=== PATIENT | female | born 1935 | race Caucasian/White ===

== ENCOUNTER 2019-05-06 08:17 | Observation (INO) ==
[2019-05-06 08:59] LABS: Appearance Urine Clear (Clear); Bilirubin Urine Negative (Negative); Blood Urine Negative (Negative); Color Urine Yellow; Glucose Urine UA Negative (Negative); Ketones Urine Negative (Negative); Leukocyte Esterase Urine Negative (Negative); Nitrite Urine Negative (Negative); Protein Urine Negative (Negative); Urobilinogen Urine Negative (Negative); pH Urine 8.5 (4.5-7.5)
--- NOTE | 2019-05-06 09:05 | CT Scan Report ---
CT head/brain wo con CLINICAL HISTORY: 83 years-old Female with encephlopathy, h/o CVA. Acute encephalopathy TECHNIQUE: Multiple axial CT images of the head were obtained without contrast. A dose lowering tech nique was utilized adhering to the principles of ALARA. CT DOSE: 651.12 mGy.cm COMPARISON: None. FINDINGS: No acute intracranial hemorrhage, midline shift, intracranial mass, hydrocephalus, territorial ischem ia or abnormal extra-axial collection. Age-related involutional changes. Multifocal patchy white marychuy er hypodensities are suggestive of advanced chronic microvascular ischemic disease. Encephalomalacia of the left frontal, temporal and parietal lobes, left carotid radiata, external capsule and lentifor m nucleus compatible with areas of remote infarction. Senescent calcifications noted about the right lentiform nucleus. Cerebral vascular calcifications are noted. The calvarium is intact. Note is made of a metopic suture. Moderate mucosal thickening of the right frontal sinus with mild mucosal thickening of the ethmoid air cells. The mastoid air cells and middle ear cavities are clear. Prior bilateral cataract repair. Soft tissues are unremarkable. IMPRESSION: 1. No acute intracranial abnormality identified. 2. Age-related involutional change with suggestion of advanced chronic microvascular ischemic disease . 3. Encephalomalacia of the left frontal, temporal and parietal lobes from remote infarct. The above report was generated using voice recognition software. It may contain grammatical, syntax o r spelling errors. Electronically signed by: Hiren Soto M.D. 05/06/2019 9:04 AM
--- NOTE | 2019-05-06 09:25 | XRay Report ---
XR chest 1V portable HISTORY: weakness COMPARISON: None. FINDINGS: No pneumothorax. No pleural effusions. The heart is mildly enlarged. Small electronic devic e overlying the left heart border. Mild diffuse interstitial thickening. This may be chronic or repre sent mild congestive change. Tortuous thoracic aorta. There is right hilar prominence. Bibasilar line ar densities are noted. IMPRESSION: 1. Cardiomegaly with diffuse interstitial thickening. This may be chronic or represent mild congestiv e change. 2. Bibasilar linear densities favor subsegmental atelectasis. 3. Right hilar prominence. This could be due to the rotated patient. Recommend follow-up PA and later al views the chest for further evaluation. Electronically signed by: Ric Solitario M.D. 05/06/2019 9:24 AM
--- NOTE | 2019-05-06 09:28 | Emergency Department Note ---
ED Visit Note I assisted Dr Becker in the care of the patient. Please see attending note for complete details. . Resident Activity Tracking Resident Involvement: Resident Care Provided Care Provided: Adult ED
[2019-05-06 10:06] LABS: Basophils # (auto) 0.04 K/uL (0-0.2); Basophils % (auto) 0.4 %; Eosinophils # (auto) 0.54 K/uL (0-0.5); Eosinophils % (auto) 6.1 %; Hematocrit (blood only) 32.5 % (37-47); Hemoglobin 10.6 g/dL (12.0-16.0); Immature Granulocytes # (auto) 0.02 K/uL (0.00-0.02); Immature Granulocytes % (auto) 0.2 %; Lymphocytes # (auto) 1.17 K/uL (1.2-3.4); Lymphocytes % (auto) 13.2 %; Mean Corpuscular Hgb Conc 32.6 g/dL (32-36); Mean Platelet Volume 9.4 fL (7.4-10.4); Monocytes # (auto) 1.01 K/uL (0.11-0.59); Monocytes % (auto) 11.4 %; Neutrophils # (auto) 6.11 K/uL (1.4-6.5); Neutrophils % (auto) 68.7 %; Platelet Count 272 K/uL (130-400); RDW Coefficient of Variation 15.3 % (11.5-14.5); Red Blood Count 3.87 M/uL (4.2-5.4); White Blood Count 8.89 K/uL (4.8-10.8)
[2019-05-06 10:21] LABS: Prothrombin Time 10.7 Seconds (9.0-12.0)
[2019-05-06 10:24] LABS: Alanine Aminotransferase 25 U/L (12-78); Albumin Level 3.3 gm/dl (3.4-5.0); Aspartate Aminotransferase 26 U/L (15-37); BUN Creatinine Ratio 18.8 (10-20); Blood Urea Nitrogen 14 mg/dl (7-18); Calcium 8.8 mg/dl (8.5-10.1); Carbon Dioxide 31 mmol/L (21-32); Chloride 104 mmol/L (98-107); Creatinine Clr Calc Pharmacy 57.2 ml/min; Est GFR (African American) 82.9; Est GFR (Non-African American) 71.5; Glucose 89 mg/dl (70-99); Magnesium 1.9 mg/dl (1.8-2.4); Potassium 3.6 mmol/L (3.5-5.1); Sodium 141 mmol/L (136-145)
[2019-05-06 10:34] LABS: Albumin Globulin Ratio 0.9 (0.9-2); Alkaline Phosphatase 85 U/L (45-117); Bilirubin,Total 0.5 mg/dl (0.2-1); Globulin 3.7 gm/dl (2.5-4.0); Troponin I < 0.015 ng/ml (0-0.045)
[2019-05-06 10:48] LABS: T4 Free Thyroxine 1.16 ng/dl (0.8-1.6)
[2019-05-06] MEDS ORDERED: ACETAMINOPHEN 325 MG TAB PO PRN (13:32)
[2019-05-06] MEDS ORDERED: ONDANSETRON INJ 2 MG/ML 2 ML VIAL IV PRN (13:32)
--- NOTE | 2019-05-06 14:02 | History & Physical Report ---
Date of Service May 06, 2019 Assessment & Plan (1) Altered mental status: (2) CVA (cerebral vascular accident): -[facility] - no electrolyte abnormalities, EKG without acute changes, CT of the head WNL -MRI of brain w/wp contrast -rule out seizure as well as additional CVA d/t stroke history -HIM consult for neurology and PCP records: [facility], Dr. Villatoro with neurology, and [facility] Dr. Wilson, PCP -Continue ASA and Plavix -Continue statin therapy -Neurology consult pending MRI, hold off until have records or unless pt status changes -Start on NSS x1 day -NPO until bedside nursing swallow eval, if poor then get formal speech eval, otherwise allow diet. -PT/OT consults (3) HLD (hyperlipidemia): -Continue atorvastatin 80 mg daily (4) HTN (hypertension): -Continue amlodipine 5 mg daily,, lisinopril 10 mg daily (5) Hypothyroidism: -Continue levothyroxine 25 mcg every morning (6) Urinary incontinence: -Continue oxybutynin 10 mg twice daily, -Last UTI was prior to last stroke -UA appears clean -incontinence could be from stroke as well as possible seizure? -Consider inserting Noble for skin protection if recurrent (7) DVT prophylaxis: -Teds, SCDs, Plavix and aspirin History of Present Illness Primary Care Provider: NO PCP This is a 83 yo F with PMHx of multiple embolic CVA, 4 events known of by family with the most recent being 6 wks ago, without significant residual deficits, HLD, hypothyroidism, HTN, arthritis, recurrent UTI, who is currently visiting her daughter here in [place]. Patient is from [facility] and flew out with her other daughter who is also present. The daughters last new the patient to be well around 3 AM when they heard her get up to take her morning levothyroxine at approximately 3 AM, which is her normal routine. The patient states that she was yelling for help after getting back into bed as she lost control of her bladder, but daughters did not hear her until ~7 AM. The patient was soaked in urine, no loss of bowel control, no vomiting. The patient felt generalized weakness everywhere, specifically heaviness in both of her legs, and was able unable to get up and out of bed therefore called EMS. The patient follows with [facility] in [place], [place] with neurologym, Dr. Smith, routinely. She has had 3 left-sided CVAs and her most recent CVA occurred on the right side ~ 6 weeks ago. She has had one intracranial bleed per family report which occurred prior to her last stroke. She is currently on anticoagulation with Plavix and aspirin. Patient missed her other morning medications today. She denies any complaints including headache, dizziness, lightheadedness, or loss of consciousness. She has not sustained any recent falls. Allergies Allergy/AdvReac Type Severity Reaction Status Date / Time No Known Allergies Allergy Unverified 05/06/19 11:30 Home Medications Home Medications Medication Instructions Recorded Confirmed Type acetaminophen 500 mg PO TID PRN 05/06/19 05/06/19 History amlodipine 5 mg PO DAILY 05/06/19 05/06/19 History aspirin [Aspirin Low Dose] 81 mg PO DAILY 05/06/19 05/06/19 History atorvastatin 80 mg PO DAILY 05/06/19 05/06/19 History cefuroxime axetil 500 mg PO BID 05/06/19 05/06/19 History cholecalciferol (vitamin D3) 2,000 unit PO DAILY 05/06/19 05/06/19 History clopidogrel 75 mg PO DAILY 05/06/19 05/06/19 History diclofenac sodium 4 g TOPICAL QID 05/06/19 05/06/19 History escitalopram oxalate 10 mg PO DAILY 05/06/19 05/06/19 History levothyroxine 25 mcg PO QAM 05/06/19 05/06/19 History lisinopril 10 mg PO DAILY 05/06/19 05/06/19 History multivitamin [Multiple Vitamins] 1 tab PO DAILY 05/06/19 05/06/19 History oxybutynin chloride 10 mg PO BID 05/06/19 05/06/19 History primidone 50 mg PO HS 05/06/19 05/06/19 History Past Med/Surg History Medical History No pertinent family history Social History Preferred Language: Occitan Communication Ability: Effective 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 Beliefs That Will Affect Care: Confucianism Confucianism Beliefs: Religion Current Living Situation: Alone and Personal Care Facility Other Information That Helps Us Care for You: No Feels Safe at Home: Yes Safety Concerns: Feels Safe At This Time Smoking Status: Never smoker Do You Dip or Chew Tobacco: No Second Hand Exposure: Yes (in the past) Tobacco Cessation Education Requested by Patient: No Hx Alcohol Use: Yes Hx Substance Use: No Review of Systems Review of Systems: Constitutional: No fever, chills, sweats, fatigue or weakness, no headache Eyes: No diplopia, no changes in vision ENT: No sore throat, tinnitus, or trouble swallowing Respiratory: No shortness of breath, No dyspnea at rest or on exertion, no cough or sputum Cardiovascular: No chest pain, palpitations, or flutter Abdomen: No pain, No constipation, No diarrhea, No nausea, No vomiting Musculoskeletal: + Generalized muscle pain in both legs, No joint pain, No swelling Genitourinary : + Urinary incontinence, No hematuria Neurologic: +difficulty with ambulation, no sensory or motor deficits Psychiatric: No depression or anxiety symptoms Endocrine: No fatigue, No weight changes Integumentary: No itch, No rash Physical Exam Physical Exam: General: awake, alert, no apparent distress Head: Normocephalic, atraumatic ENT: PERRL, EOMI, no pharyngeal exudate, mucous membranes slightly dry Chest: Clear to auscultation, + slightly diminished at bases, on room air, no adventitious breath sounds Cardiac: Regular rate and rhythm, no murmur, no JVD, normal peripheral pulses, good capillary refill Abdominal: NABS x 4 quadrants, soft, nontender to palpation, no rebound, guarding or tenderness Extremities: Normal inspection, no peripheral edema or erythema, calfs nontender to palpation Psych: Normal mood and affect Neuro: AAO x 3, strength intact bilaterally and related 5/5 in upper extremities, bilateral lower extremities 4/5, has difficulty moving to what appears to be a muscle cramp as her pain resolved within 10 seconds during testing, no other motor deficits, speech is clear but speaks very quietly, no peripheral sensory deficits Skin: no rash or erythema Results & Data Vital Signs (Past 12 Hours) Vital Signs Temp Pulse Pulse Resp BP BP Pulse Ox 05/06/19 13:36 72 18 166/93 H 96 05/06/19 12:00 74 16 154/93 H 97 05/06/19 10:07 71 16 157/96 H 97 05/06/19 08:53 98 05/06/19 08:30 36.5 C 70 16 178/77 H 98 Diagnostic Findings XR chest 1V portable HISTORY: weakness COMPARISON: None. FINDINGS: No pneumothorax. No pleural effusions. The heart is mildly enlarged. Small electronic device overlying the left heart border. Mild diffuse interstitial thickening. This may be chronic or represent mild congestive change. Tortuous thoracic aorta. There is right hilar prominence. Bibasilar linear densities are noted. IMPRESSION: 1. Cardiomegaly with diffuse interstitial thickening. This may be chronic or represent mild congestive change. 2. Bibasilar linear densities favor subsegmental atelectasis. 3. Right hilar prominence. This could be due to the rotated patient. Recommend follow-up PA and lateral views the chest for further evaluation. [place] [phone] CT Scan Report Patient: EDGARDO GUAJARDOAdmit Date: 05/06/19 MR#: [id number]: [id number] [facility] Acct ID:[id number]: Date: 1935[facility] Zip: [place] [address] Age: 83Location: ED Sex: F Room/Bed: Att Phy: Diagnosis: LETHARGIC Lupe Phy: PCP,NO Service Date: 05/06/19 [facility] Phy: Interpreting Phy: Juanpablo Soto Admit Phy: Ordering Phy: Khoa Vega MD cc: ~ CT head/brain wo con CLINICAL HISTORY: 83 years-old Female with encephlopathy, h/o CVA. Acute encephalopathy TECHNIQUE: Multiple axial CT images of the head were obtained without contrast. A dose lowering technique was utilized adhering to the principles of ALARA. CT DOSE: 651.12 mGy.cm COMPARISON: None. FINDINGS: No acute intracranial hemorrhage, midline shift, intracranial mass, hydrocephalus, territorial ischemia or abnormal extra-axial collection. Age- related involutional changes. Multifocal patchy white matter hypodensities are suggestive of advanced chronic microvascular ischemic disease. Encephalomalacia of the left frontal, temporal and parietal lobes, left carotid radiata, external capsule and lentiform nucleus compatible with areas of remote infarction. Senescent calcifications noted about the right lentiform nucleus. Cerebral vascular calcifications are noted. The calvarium is intact. Note is made of a metopic suture. Moderate mucosal thickening of the right frontal sinus with mild mucosal thickening of the ethmoid air cells. The mastoid air cells and middle ear cavities are clear. Prior bilateral cataract repair. Soft tissues are unremarkable. IMPRESSION: 1. No acute intracranial abnormality identified. 2. Age-related involutional change with suggestion of advanced chronic microvascular ischemic disease. 3. Encephalomalacia of the left frontal, temporal and parietal lobes from remote infarct. Code Status & VTE Plan Code Status DNR-discussed with the patient and her daughters at bedside Supervising Physician Co-Signing Physician Notes Patient seen and examined with Mine SALGADO. I agree with her HPI, history, ROS, physical exam and A/P. Case was discussed with her as well as the reyes points in treatment. I personally reviewed the lab work and imaging and other diagnostic studies. patient with acute onset of urinary incontinence this morning around 3am, this is new issue urine was "pouring" out of her, clear as water per daughters and RN here in the ED straight cath for over 600cc so this would suggest urinary retention with overflow incontinence also with bilateral leg weakness, pain in upper legs which is new symptom per her daughter, she has h/o strokes in the past, some mild residual deficits from stroke two years ago, no deficits from more recent stroke a few months ago awaiting records from [facility] reviewed labs, arabella CBC and BMP, no evidence of UTI on urinalysis which was straight cath no fever, vitals stable except for some mildly elevated BP - Acute onset urinary incontinence, appears to be overflow so actually some retention associated with bilateral leg weakness check MRI lumbar spine and MRI brain admit to tele no signs of UTI although she has a history of such no low back pain but has very profound weakness will get PT/OT once we know the lumbar spine is okay PG Care Time/CCT Total # of Minutes Spent Total Time Spent with Patient: Total time spent is greater than 50% in coordination of care (as documented) at patient's floor/unit and/or counseling patient: (1) Altered mental status Altered mental status type: unspecified Qualified Code(s): R41.82 - Altered mental status, unspecified
[2019-05-06] MEDS: SODIUM CHLORIDE 0.9% 1000ML 1,000 ML IV SCH (15:11)
--- NOTE | 2019-05-06 15:43 | Emergency Department Note ---
Entered by Jarvis Gilmore acting as a scribe for Melchor Murray MD ED Provider Note CHIEF COMPLAINT: Generalized illness HISTORY OF PRESENT ILLNESS: The patient is a 83 year old female who presents to the Emergency Room with complaints of generalized illness. Per the patient's daughter, the patient has been visiting from [place]. This morning, the patient woke up screaming in pain and had some incontinence which she normally has issues with. The patient was unable to describe what kind of pain she is in because she has some speech impediments. The patient goes to speech therapy for the impediments. The patient has a history of CVAs, the last one she had was two years ago. The patient is on Plavix and aspirin. Pt denies LOC, headache, fevers, chills, visual changes, neck pain, chest pain, breathing difficulties, nausea, vomiting, abdominal pain, back pain, melena, hematochezia, numbness, lymphadenopathy, rash, or other complaints. REVIEW OF SYSTEMS: See HPI for pertinent positives and negatives. A total of ten systems were reviewed and were otherwise negative. PMHx/PSHx: No pertinent medical history. SOCIAL HISTORY: Patient lives at home. Primary Language: Ukrainian PHYSICAL EXAM: GENERAL: Awake, alert, well-appearing, in no distress HENT: Normocephalic, atraumatic. Oropharynx unremarkable. EYES: PERRL. Normal conjunctiva. Sclera non-icteric. NECK: Inspection normal. Non-tender. Supple. No nuchal rigidity. FROM. No masses. RESPIRATORY: Clear to auscultation. No wheezes. No rales. Normal respiratory effort. CARDIAC: Normal rate. Normal rhythm. No murmurs. No rubs. Extremities warm and well perfused. Pulses equal. No JVD. GI: Soft, non-distended. No tenderness to palpation. No rebound or guarding. No masses. RECTAL: Deferred. MUSCULOSKELETAL: Atraumatic. Chest examination reveals no tenderness. The back is symmetrical on inspection without obvious abnormality. There is no CVA tenderness to palpation. No joint edema. LOWER EXTREMITIES: Calves are equal size bilaterally and non-tender. No edema. No discoloration. NEURO: Normal sensorium. No sensory or motor deficits noted. No drift. Normal Sp eech. SKIN: No rash or jaundice noted. EMERGENCY DEPARTMENT COURSE: 08: Past medical records reviewed. The patient was evaluated in room B6, and a complete history and physical examination were performed. 1300: I checked up on the patient, she states she is feeling a little better. She is no longer confused or sweaty. I spoke to the daughter and they were concerned about her going home. 1310: I spoke to Mine Bah, [facility]ISE, about the patients case and she said that Dr. Avalos, [facility] Hospitalist, will accept the patient for further evaluation. 1444: The patient has been admitted. MEDICAL DECISION MAKING: Nursing notes reviewed and agree them. Additional history obtained from patient's daughters. The patient's history was concerning for altered mental status. Differential diagnosis: Etiologies such as infection, hypoglycemia, electrolyte abnormalities, cardiac sources, intracerebral event, toxicologic, neurologic, as well as others were entertained. Physical examination: As above. Nonfocal. ER treatment provided: IV Lock Cardiac monitoring revealed no evidence of dysrhythmia. On reassessment the patient felt better. Diagnostics interpretation by me: ECG: Normal sinus rhythm. The labs revealed an unremarkable CBC and chemistry panel. Urinalysis negative. Imaging studies: Chest x-ray and CT scan were performed and were negative for acute findings. Old CVA noted. The patient had. Of weakness and altered mental status. Urinalysis does not suggest infection. She does have a history of similar events with prior CVA/TIA. Cardiac work-up to this point is negative. Further management in the hospital is warranted and the family feels most comfortable with that. Consultation: A consultation was placed with the hospitalist. The case was discussed and d iagnostics were reviewed. The patient was evaluated in the ER for further treatment. The patient was seen and examined with Dr Vega, resident physician. We discussed the case and treatments ordered, reviewed the results, and determine the disposition. I have been directly involved with the management and disposition as well as independently evaluated the patient as documented in this note. IMPRESSION: Altered mental status H/o CVA PLAN: Further management by Hospitalist The scribe's documentation has been prepared under my direction and personally reviewed by me in its entirety. I confirm that the note above accurately reflects all work, treatment, procedures, and medical decision making performed by me. Impression & Plan Altered mental status, Diaphoresis, Incontinence Past Med/Surg History Medical History No pertinent family history Social History Preferred Language: Ukrainian Communication Ability: Effective [employer] Salesperson Required: No Beliefs That Will Affect Care: Restorationism Restorationism Beliefs: Baptism Current Living Situation: Alone and Personal Care Facility Other Information That Helps Us Care for You: No Feels Safe at Home: Yes Safety Concerns: Feels Safe At This Time Smoking Status: Never smoker Do You Dip or Chew Tobacco: No Second Hand Exposure: Yes (in the past) Tobacco Cessation Education Requested by Patient: No Hx Alcohol Use: Yes Hx Substance Use: No Results & Data Vital Signs Vital Signs - 24 hr 05/06/19 08:30 05/06/19 08:53 05/06/19 10:07 Temperature 36.5 C Temperature Source Oral Sepsis Recent Fever Within 48 Hours No Sepsis New/Unexplained Change in Mental Status No Sepsis Action Taken by Nursing No Action Required Pulse Rate 70 Pulse Rate [Apical] 71 Respiratory Rate 16 16 Blood Pressure 178/77 H Blood Pressure [Right Arm] 157/96 H Blood Pressure Mean 110 Blood Pressure Mean [Right Arm] 116 Pulse Oximetry 98 98 97 Oxygen Delivery Method Room Air Room Air Room Air 05/06/19 12:00 Temperature Temperature Source Sepsis Recent Fever Within 48 Hours Sepsis New/Unexplained Change in Mental Status Sepsis Action Taken by Nursing Pulse Rate Pulse Rate [Apical] 74 Respiratory Rate 16 Blood Pressure Blood Pressure [Right Arm] 154/93 H Blood Pressure Mean Blood Pressure Mean [Right Arm] 113 Pulse Oximetry 97 Oxygen Delivery Method Room Air Home Medications Current Medication List: was personally reviewed by me Laboratory Data Attestation: I reviewed the patient's lab results. Result diagrams: 05/06/19 09:51 05/06/19 09:51 Lab Results 05/06/19 05/06/19 05/06/19 Range/Units 08:30 09:51 09:51 WBC 8.89 (4.8-10.8) K/uL RBC 3.87 L (4.2-5.4) M/uL Hgb 10.6 L (12.0-16.0) g/dL Hct 32.5 L (37-47) % MCV 84.0 (80-100) fL MCH 27.4 (25-34) pg MCHC 32.6 (32-36) g/dL RDW Std Deviation 47.0 H (36.4-46.3) fL RDW Coeff of Dara 15.3 H (11.5-14.5) % Plt Count 272 (130-400) K/uL MPV 9.4 (7.4-10.4) fL Immature Gran % (Auto) 0.2 % Neut % (Auto) 68.7 % Lymph % (Auto) 13.2 % [place] % (Auto) 11.4 % Eos % (Auto) 6.1 % Baso % (Auto) 0.4 % Immature Gran # (Auto) 0.02 (0.00-0.02) K/uL Neut # (Auto) 6.11 (1.4-6.5) K/uL Lymph # (Auto) 1.17 L (1.2-3.4) K/uL [place] # (Auto) 1.01 H (0.11-0.59) K/uL Eos # (Auto) 0.54 H (0-0.5) K/uL Baso # (Auto) 0.04 (0-0.2) K/uL PT 10.7 (9.0-12.0) Seconds INR 1.0 (0.9-1.1) Sodium (136-145) mmol/L Potassium (3.5-5.1) mmol/L Chloride (98-107) mmol/L Carbon Dioxide (21-32) mmol/L Anion Gap (3-11) BUN (7-18) mg/dl Creatinine (0.6-1.2) mg/dl Est Cr Clr Drug Dosing ml/min Est GFR ( Amer) Est GFR (Non-Af Amer) BUN/Creatinine Ratio (10-20) Glucose (70-99) mg/dl Calcium (8.5-10.1) mg/dl Magnesium (1.8-2.4) mg/dl Total Bilirubin (0.2-1) mg/dl AST (15-37) U/L ALT (12-78) U/L Alkaline Phosphatase (45-117) U/L Troponin I (0-0.045) ng/ml Total Protein (6.4-8.2) gm/dl Albumin (3.4-5.0) gm/dl Globulin (2.5-4.0) gm/dl Albumin/Globulin Ratio (0.9-2) TSH (0.300-4.500) uIu/ml Free T4 (0.8-1.6) ng/dl Urine Color Yellow Urine Appearance Clear (Clear) Urine pH 8.5 H (4.5-7.5) Ur Specific [place] 1.010 (1.000-1.030) Urine Protein Negative (Negative) Urine Glucose (UA) Negative (Negative) Urine Ketones Negative (Negative) Urine Blood Negative (Negative) Urine Nitrite Negative (Negative) Urine Bilirubin Negative (Negative) Urine Urobilinogen Negative (Negative) Ur Leukocyte Esterase Negative (Negative) 05/06/19 Range/Units 09:51 WBC (4.8-10.8) K/uL RBC (4.2-5.4) M/uL Hgb (12.0-16.0) g/dL Hct (37-47) % MCV (80-100) fL MCH (25-34) pg MCHC (32-36) g/dL RDW Std Deviation (36.4-46.3) fL RDW Coeff of Dara (11.5-14.5) % Plt Count (130-400) K/uL MPV (7.4-10.4) fL Immature Gran % (Auto) % Neut % (Auto) % Lymph % (Auto) % [place] % (Auto) % Eos % (Auto) % Baso % (Auto) % Immature Gran # (Auto) (0.00-0.02) K/uL Neut # (Auto) (1.4-6.5) K/uL Lymph # (Auto) (1.2-3.4) K/uL [place] # (Auto) (0.11-0.59) K/uL Eos # (Auto) (0-0.5) K/uL Baso # (Auto) (0-0.2) K/uL PT (9.0-12.0) Seconds INR (0.9-1.1) Sodium 141 (136-145) mmol/L Potassium 3.6 (3.5-5.1) mmol/L Chloride 104 (98-107) mmol/L Carbon Dioxide 31 (21-32) mmol/L Anion Gap 6.0 (3-11) BUN 14 (7-18) mg/dl Creatinine 0.76 (0.6-1.2) mg/dl Est Cr Clr Drug Dosing 57.2 ml/min Est GFR ( Amer) 82.9 Est GFR (Non-Af Amer) 71.5 BUN/Creatinine Ratio 18.8 (10-20) Glucose 89 (70-99) mg/dl Calcium 8.8 (8.5-10.1) mg/dl Magnesium 1.9 (1.8-2.4) mg/dl Total Bilirubin 0.5 (0.2-1) mg/dl AST 26 (15-37) U/L ALT 25 (12-78) U/L Alkaline Phosphatase 85 (45-117) U/L Troponin I < 0.015 (0-0.045) ng/ml Total Protein 7.0 (6.4-8.2) gm/dl Albumin 3.3 L (3.4-5.0) gm/dl Globulin 3.7 (2.5-4.0) gm/dl Albumin/Globulin Ratio 0.9 (0.9-2) TSH 5.550 H (0.300-4.500) uIu/ml Free T4 1.16 (0.8-1.6) ng/dl Urine Color Urine Appearance (Clear) Urine pH (4.5-7.5) Ur Specific [place] (1.000-1.030) Urine Protein (Negative) Urine Glucose (UA) (Negative) Urine Ketones (Negative) Urine Blood (Negative) Urine Nitrite (Negative) Urine Bilirubin (Negative) Urine Urobilinogen (Negative) Ur Leukocyte Esterase (Negative) Administered Medications Sodium Chloride (Nss 1000ml) 1,000 mls @ 125 mls/hr IV .Q8H ELYSSA Stop: 05/07/19 13:44 Last Admin: 05/06/19 15:11 Dose: 125 mls/hr Documented by: [id number] Imaging Data Attestation: I personally reviewed and interpreted this imaging study as follows: Radiologist's Impression: Radiology results as stated below per my review and the radiologist's interpretation: CT head/brain wo con CLINICAL HISTORY: 83 years-old Female with encephlopathy, h/o CVA. Acute encephalopathy TECHNIQUE: Multiple axial CT images of the head were obtained without contrast. A dose lowering technique was utilized adhering to the principles of ALARA. CT DOSE: 651.12 mGy.cm COMPARISON: None. FINDINGS: No acute intracranial hemorrhage, midline shift, intracranial mass, hydrocephalus, territorial ischemia or abnormal extra-axial collection. Age- related involutional changes. Multifocal patchy white matter hypodensities are suggestive of advanced chronic microvascular ischemic disease. Encephalomalacia of the left frontal, temporal and parietal lobes, left carotid radiata, external capsule and lentiform nucleus compatible with areas of remote infarction. Senescent calcifications noted about the right lentiform nucleus. Cerebral vascular calcifications are noted. The calvarium is intact. Note is made of a metopic suture. Moderate mucosal thickening of the right frontal sinus with mild mucosal thickening of the ethmoid air cells. The mastoid air cells and middle ear cavities are clear. Prior bilateral cataract repair. Soft tissues are unremarkable. IMPRESSION: 1. No acute intracranial abnormality identified. 2. Age-related involutional change with suggestion of advanced chronic microvascular ischemic disease. 3. Encephalomalacia of the left frontal, temporal and parietal lobes from remote infarct. The above report was generated using voice recognition software. It may contain grammatical, syntax or spelling errors. Electronically signed by: Hiren Soto M.D. 05/06/2019 9:04 AM XR chest 1V portable HISTORY: weakness COMPARISON: None. FINDINGS: No pneumothorax. No pleural effusions. The heart is mildly enlarged. Small electronic device overlying the left heart border. Mild diffuse interst itial thickening. This may be chronic or represent mild congestive change. Tortuous thoracic aorta. There is right hilar prominence. Bibasilar linear densities are noted. IMPRESSION: 1. Cardiomegaly with diffuse interstitial thickening. This may be chronic or represent mild congestive change. 2. Bibasilar linear densities favor subsegmental atelectasis. 3. Right hilar prominence. This could be due to the rotated patient. Recommend follow-up PA and lateral views the chest for further evaluation. Electronically signed by: Ric Solitario M.D. 05/06/2019 9:24 AM ECG Data Attestation: I personally reviewed and interpreted this ECG as follows: Indication: other (illness) Rate (beats per minute): 73 Rhythm: normal sinus Findings: + other (Septal Q-wave); no PAC, no PVC, no ST depression and no ST elevation Blood Pressure Blood Pressure Findings: Elevated blood pressure Blood Pressure Disposition: Referred to patients primary care provider Discharge Plan Visit Data Chief Complaint: Illness Other Complaint: Lethargic ED Provider: Melchor Murray ED Midlevel Provider: Khoa Vega Discharge Problem: Altered mental status, Diaphoresis, Incontinence Patient Disposition: Being Evaluated by Hospitalist Discharge Instructions Interventions: ED Discharge Assessment Last Done: 05/06/19 15:02 Discharge Problem: Altered mental status Qualifiers: Altered mental status type: unspecified Qualified Code(s): R41.82 - Altered mental status, unspecified Incontinence Qualifiers: Incontinence type: urinary Urinary Incontinence type: unspecified incontinence Qualified Code(s): R32 - Unspecified urinary incontinence The scribe's documentation has been prepared under my direction and personally reviewed by me in its entirety. I confirm that the note above accurately reflects all work, treatment, procedures, and medical decision making performed by me.
[2019-05-06] MEDS ORDERED: ACETAMINOPHEN 500 MG TAB PO PRN (16:50)
[2019-05-06] MEDS ORDERED: DICLOFENAC SOD 1% GEL 100 GM TUBE EXT SCH (17:00)
--- NOTE | 2019-05-06 19:01 | Magnetic Resonance Report ---
MRI OF THE LUMBAR SPINE WITHOUT IV CONTRAST CLINICAL HISTORY: Urinary incontinence. Lower extremity weakness. COMPARISON STUDY: No priors. TECHNIQUE: MRI of the lumbar spine is performed utilizing various T1 and T2-weighted sequences in the axial and sagittal planes. IV contrast was not administered for this examination. FINDINGS: Lumbar spine: Marrow signal intensity is heterogeneous. Vertebral body height and alignment are maint ained throughout the lumbar spine. Small anterior osteophytes are seen throughout. The transverse and spinous processes appear intact. There is no evidence of spondylolysis. No destructive bony lesion i s seen. Mild chronic degenerative endplate change is noted at L5-S1. There is no significant endplate edema. Intervertebral discs: Degenerative disc desiccation is seen throughout the lumbar spine. There is sev ere loss of height at T12-L1. Moderate loss of height is seen at L5-S1. Mild loss of height is seen a t the remaining lumbar levels. Spinal cord: The visualized spinal cord is normal in morphology and signal intensity. The conus medul luciana terminates at the level of L1. The nerve roots of the cauda equina are normal in morphology. T12-L1: There is a broad-based posterior disc bulge. This is only seen on the sagittal sequence. No h igh-grade central canal stenosis is identified. L1-L2: Unremarkable. L2-L3: There is a small posterior disc bulge. The central canal is clear. There is mild bilateral sub articular stenosis. This may abut the exiting bilateral L2 nerve roots. Facet arthropathy causes mini mal bilateral neural foraminal stenosis. L3-L4: There is a tiny posterior disc osteophyte complex. The central canal is patent. There is right greater than left subarticular stenosis. This may abut the exiting right L3 nerve root. Facet arthro armando is of no consequence. The neural foramina are clear. L4-L5: There is a small posterior disc osteophyte complex. There is no significant central canal sten osis. Facet arthropathy causes mild bilateral neural foraminal narrowing. L5-S1: There is a small posterior disc bulge with annular fissure. There is no significant central ca nal stenosis. There is left greater than right subarticular stenosis with possible impingement on the exiting bilateral L5 nerve roots. Facet arthropathy causes moderate to severe right and mild to mode rate left neural foraminal stenosis. Sacrum: The visualized sacrum is normal in morphology and signal intensity. Soft tissues: There is fatty atrophy of the paraspinous musculature. There is mild ectasia of the abd ominal aorta. There is lobulation of the right renal cortex which measures up to 4.0 cm as seen on ax ial image #2. IMPRESSION: 1. There is no disc herniation or significant central canal stenosis. 2. Mild lumbosacral spondylosis as above. See discussion for detailed level by level analysis. 3. Question abnormal lobulation versus mass lesion involving the right renal cortex. Correlation with a renal ultrasound is recommended for further assessment. Dictated: 05/06/2019 6:35 PM Transcribed: 05/06/2019 6:55 PM [place] [id number] [id number] Electronically signed by: Jase Trejo M.D. 05/06/2019 6:59 PM
[2019-05-06] MEDS ORDERED: GADOBUTROL 65ML VIAL IV PRN (19:03)
--- NOTE | 2019-05-06 19:14 | Magnetic Resonance Report ---
MRI OF THE BRAIN COMBO CLINICAL HISTORY: Change in mental status. Generalized weakness. Urinary incontinence. COMPARISON STUDY: CT of the brain dated 05/06/2019. TECHNIQUE: MRI of the brain was performed utilizing various T1 and T2-weighted sequences in the axial , sagittal, and coronal planes. Contrast-enhanced sequences were acquired following the administratio n of 7.4 cc of Gadavist. The examination is performed using the seizure protocol. FINDINGS: Brain parenchyma: There is age-related involutional change noting advanced confluent subcortical and periventricular microangiopathic disease. Foci of encephalomalacia throughout the left MCA territory and the left basal ganglia are consistent with remote infarcts. There is no hemorrhage or mass effect . There is no restricted diffusion to suggest acute ischemia. No enhancing mass lesion is identified on the postcontrast images. [place]-white matter differentiation is preserved. No extra-axial fluid darren ection is seen. The cerebellar tonsils are normal in configuration. Ventricles, sulci, and cisterns: Prominent secondary to involutional change. Pituitary and sella: Unremarkable. Intracranial vasculature: Normal flow voids are maintained at the skull base. Orbits: The bony orbits are grossly intact. Orbital contents are normal in appearance noting bilatera l ocular lens implants. Sinuses and mastoids: There is mucosal thickening within the right frontal sinus. The remaining paran laure sinuses are clear. There is a trace right mastoid effusion. The left mastoid air cells are well pneumatized. Calvarium: Unremarkable. Cervical cord: Partially visualized cervical spinal cord is normal in morphology and signal intensity . IMPRESSION: 1. There is no acute intracranial abnormality. 2. Senescent change and remote infarcts as above. Electronically signed by: Jase Trejo M.D. 05/06/2019 7:12 PM
[2019-05-06] MEDS: OXYBUTYNIN CHLORIDE 5 MG TAB PO SCH (20:28)
[2019-05-06] MEDS ORDERED: PRIMIDONE 50 MG TAB PO SCH (21:00)
[2019-05-07] MEDS: SODIUM CHLORIDE 0.9% 1000ML 1,000 ML IV SCH ×2 (01:30→07:49)
[2019-05-07] MEDS ORDERED: LEVOTHYROXINE SODIUM 25 MCG TABLET PO SCH (06:30)
[2019-05-07] MEDS: OXYBUTYNIN CHLORIDE 5 MG TAB PO SCH (07:49)
[2019-05-07 08:23] LABS: Albumin Level 2.8 gm/dl (3.4-5.0); BUN Creatinine Ratio 18.2 (10-20); Calcium 8.5 mg/dl (8.5-10.1); Est GFR (Non-African American) 79.4; Magnesium 1.8 mg/dl (1.8-2.4); Potassium 3.4 mmol/L (3.5-5.1)
[2019-05-07 08:24] LABS: Albumin Globulin Ratio 0.9 (0.9-2); Bilirubin,Total 0.6 mg/dl (0.2-1); Globulin 3.2 gm/dl (2.5-4.0); Phosphorus 3.4 mg/dl (2.5-4.9)
[2019-05-07] MEDS ORDERED: CHOLECALCIFEROL 1,000 UNITS TAB PO SCH (09:00)
[2019-05-07] MEDS ORDERED: CLOPIDOGREL BISULFATE 75 MG TAB PO SCH (09:00)
[2019-05-07] MEDS ORDERED: LISINOPRIL 10 MG TAB PO SCH (09:00)
[2019-05-07] MEDS ORDERED: AMLODIPINE BESYLATE 5 MG TAB PO SCH (09:00)
[2019-05-07] MEDS ORDERED: ATORVASTATIN 40 MG TAB PO SCH (09:00)
[2019-05-07] MEDS ORDERED: MULTIVITAMIN TAB PO SCH (09:00)
[2019-05-07] MEDS ORDERED: ASPIRIN 81 MG ECTAB PO SCH (09:00)
[2019-05-07] MEDS ORDERED: ESCITALOPRAM OXALATE 10 MG TAB PO SCH (09:00)
--- NOTE | 2019-05-07 14:06 | Discharge Summary ---
Date of Service May 07, 2019 Admission HPI Per Admitting Provider This is a 83 yo F with PMHx of multiple embolic CVA, 4 events known of by family with the most recent being 6 wks ago, without significant residual deficits, HLD, hypothyroidism, HTN, arthritis, recurrent UTI, who is currently visiting her daughter here in [place]. Patient is from [facility] and flew out with her other daughter who is also present. The daughters last new the patient to be well around 3 AM when they heard her get up to take her morning levothyroxine at approximately 3 AM, which is her normal routine. The patient states that she was yelling for help after getting back into bed as she lost control of her bladder, but daughters did not hear her until ~7 AM. The patient was soaked in urine, no loss of bowel control, no vomiting. The patient felt generalized weakness everywhere, specifically heaviness in both of her legs, and was able unable to get up and out of bed therefore called EMS. The patient follows with [facility] in [place], [place] with neurologym, Dr. Smith, routinely. She has had 3 left-sided CVAs and her most recent CVA occurred on the right side ~ 6 weeks ago. She has had one intracranial bleed per family report which occurred prior to her last stroke. She is currently on anticoagulation with Plavix and aspirin. Patient missed her other morning medications today. She denies any complaints including headache, dizziness, lightheadedness, or loss of consciousness. She has not sustained any recent falls. Principal Diagnosis Generalized weakness Discharge Exam Constitutional WD/WN, vitals as above Eyes PERRL, conjunctivae normal, anicteric sclerae ENMT external ear and nose normal, oropharynx normal Neck trachea midline, no thyromegaly Respiratory normal respiratory effort, lungs clear to auscultation Cardiovascular RRR, no murmur, no edema Gastrointestinal (Abdomen) normal bowel sounds, soft, nontender, no hepatosplenomegaly Musculoskeletal no cyanosis or clubbing, extremities motor strength 5/5 Skin no rashes, warm and dry Neurologic patellar DTR's 2+ bilat, sensation intact and PERRL, EOMI, accommodation nl, no face palsy, no dysarthria Psychiatric A+Ox3, euthymic affect Lymphatic no cervical or axillary lymphadenopathy Discharge Data Allergies Allergy/AdvReac Type Severity Reaction Status Date / Time No Known Allergies Allergy Unverified 05/06/19 11:30 Consultations 05/06/19 13:32 Consult Case Management - Discharge Planning Routine 05/06/19 14:40 ED Decision to Admit Stat 05/06/19 16:50 Consult Health Information Management Stat Ordered Studies 05/06/19 08:36 CT head/brain wo con Stat 05/06/19 13:32 MR brain seizure wo/w con Stat 05/06/19 16:50 MR lumbar spine wo con Stat Hospital Course (1) Urinary incontinence: no evidence of UTI actually had a straight cath for 600cc so likely overflow incontinence checked an MRI of lumbar spine due to concurrent bilateral leg weakness on admission MRI negative for spinal cord impingement still with incontinence but better will follow up with urology at home in [place] (2) Weakness: on admission both legs were weak, strength at 3 or 4 out of 5 this morning strength intact, ambulating independently so issue is resolving quickly no clear reason, no infection, no stroke, no spinal stenosis or cord impingement d/c to home, cleared by PT (3) Altered mental status: resolved, alert and conversive this morning daughters say she is at her baseline mentally (4) CVA (cerebral vascular accident): history of CVA a few months ago as well as last year no evidence of acute CVA, MRI brain is negative for acute ischemia, just shows prior strokes continue aspirin and Plavix as prescribed (5) HLD (hyperlipidemia): -Continue atorvastatin 80 mg daily (6) HTN (hypertension): -Continue amlodipine 5 mg daily,, lisinopril 10 mg daily (7) Hypothyroidism: -Continue levothyroxine 25 mcg every morning (8) DVT prophylaxis: -Teds, SCDs, Plavix and aspirin Total Time Total Time Spent Total Time Spent (In Minutes): 35 minutes Total Time Includes: Examination of the Patient, Discharge Planning and Medication Reconciliation Discharge Plan Discharge Items Patient Disposition: Home - Self-Care Reason For Visit: GERNERALIZED WEAKNESS Discharge Diagnosis: Weakness Urinary incontinence Condition: Good Discharge Goals: Diagnostic testing and Improve function Specific Goals: follow up with urology back home for incontinence Activity: Resume your previous activity Non-emergency contact: Primary Care Provider and Urologist Call non-emergency contact if: you have any medication questions, your symptoms worsen and you have a fever Follow-up/Referrals: PCP,NO [Primary Care Provider] - Diet: Heart Healthy Addtl Provider Instructions: Medications: no changes Abrupt onset of weakness, urinary incontinence unclear etiology MRI brain showed no acute strokes, just prior strokes MRI lumbar spine did not show any impingement of spinal cord, essentially normal no evidence of UTI weakness resolved recommend you return home, follow up with local urologist for the incontinence Prescriptions: Continued multivitamin [Multiple Vitamins] Tablet 1 tab PO DAILY RF: 0 primidone 50 mg tablet 50 mg PO HS RF: 0 atorvastatin 80 mg tablet 80 mg PO DAILY RF: 0 clopidogrel 75 mg tablet 75 mg PO DAILY RF: 0 amlodipine 5 mg tablet 5 mg PO DAILY RF: 0 aspirin [Aspirin Low Dose] 81 mg Tablet,Delayed Release (Dr/Ec) 81 mg PO DAILY RF: 0 acetaminophen 500 mg Tablet 500 mg PO TID PRN (Reason: Pain) RF: 0 levothyroxine 25 mcg tablet 25 mcg PO QAM RF: 0 oxybutynin chloride 5 mg/5 mL syrup 10 mg PO BID RF: 0 lisinopril 10 mg tablet 10 mg PO DAILY RF: 0 escitalopram oxalate 10 mg tablet 10 mg PO DAILY RF: 0 diclofenac sodium 1 % Gel 4 g TOPICAL QID RF: 0 cholecalciferol (vitamin D3) 2,000 unit Tablet 2,000 unit PO DAILY RF: 0 Discontinued cefuroxime axetil 250 mg tablet 500 mg PO BID RF: 0 Stand-Alone Forms: [facility] Discharge Orders: Discharge Order (Routine); Ordered 05/07/19 Ordered By: Keyshawn Avalos Admission Data Admit Date/Time: 05/06/19 13:31 Attending Provider: Keyshawn Avalos Admit Provider: Keyshawn Avalos Primary Care Provider: PCP,NO Other Providers: Keyshawn Avalos Service: Medical Other Interventions: Discharge Summary Assessment (RN) Last Done: 05/07/19 11:07 Pending Studies at Discharge: No DC Date/Time DO NOT enter until pt leaves facility: 05/07/19 13:14
== END 2019-05-07 13:14 | disposition home or self-care (01) ==
LOC: 2N 08:17 → ED 08:17 → 2N 15:02